=== PATIENT | female | born 1985 | race Caucasian/White ===

== ENCOUNTER 2016-10-17 11:42 | Emergency (ER) | payer OTHER ==
[~2016-10-17] VITALS: Ht 162.6 cm; Wt 61.4 kg
[~2016-10-17 11:42] MED LIST: IBUP-1547 PO
[2016-10-17] MEDS ORDERED: ACET-66 PO (11:49)
[2016-10-17 12:38] LABS: APPEARANCE,URINE CLOUDY (CLEAR); GLUCOSE, URINE (UA) NEGATIVE (NEGATIVE); KETONES,URINE NEGATIVE (NEGATIVE); LEUKOCYTE ESTERASE ,URINE LARGE (NEGATIVE); OCCULT BLOOD,URINE SMALL (NEGATIVE); PROTEIN,URINE NEGATIVE (NEGATIVE)
[2016-10-17 12:41] LABS: ADD UA MICROSCOPIC YES
[2016-10-17 12:55] LABS: SQUAMOUS EPITHELIAL CELL,UR Many /LPF (None Seen); WBC,URINE 51-100 /HPF (0-5)
[2016-10-17 13:20] VITALS: BP 122/89
== END 2016-10-17 13:24 | disposition home or self-care (01) ==
LOC: EMS 11:43
DX: N39.0 Urinary tract infection, site not specified (principal)
CPT/HCPCS: 87086; 99284